=== PATIENT | male | born 1965 | race Caucasian/White ===

== ENCOUNTER 2016-09-08 15:15 | Outpatient (CLI) ==
[2015-11-05 17:10] VITALS: BMI 24.3
--- NOTE | 2016-09-08 15:37 | DI ---
EXAM: Chest two view, frontal and lateral views. HISTORY: Bronchitis. COMPARISON: None available. FINDINGS: The heart size is normal. There is no pulmonary vascular congestion. Small focal opacit y seen in the left lung base on the frontal view. Otherwise, the lungs are clear. No pleural effus ion or pneumothorax is seen. No acute osseous abnormality identified. IMPRESSION: Possible small focus of atelectasis or pneumonia at the left lung base. Follow-up in 4-6 weeks alysha mmended for reassessment.
== END 2016-09-08 15:16 | disposition home or self-care (01) ==
LOC: RAD 15:15
PROVIDERS: ATTEND Family Medicine
DX: J40 Bronchitis, not specified as acute or chronic (principal)

== ENCOUNTER 2017-10-31 14:38 | Outpatient (CLI) ==
[2015-11-05 17:10] VITALS: BMI 24.3
--- NOTE | 2017-10-31 15:38 | US ---
EXAM: Right lower extremity venous Doppler History: Right lower extremity pain and redness. Technique: Multiple sonographic images through the right lower extremity were obtained. Color duple x Doppler was used to interrogate vascular flow. Findings: The right common femoral, greater saphenous, superficial femoral, profunda, popliteal, per kang, posterior tibial, anterior tibial veins demonstrate spontaneous flow with normal compression a nd normal augmentation. Impression: No sonographic evidence for deep venous thrombosis
--- NOTE | 2017-10-31 15:51 | DI ---
EXAM: Three views of the right tibia and fibula. History: Right lower leg pain. Findings: No acute fracture or dislocation. No abnormal calcifications or radiopaque foreign bodies . Joint spaces are relatively preserved. Minimal calcaneal enthesiopathy. Impression: No acute osseous abnormality.
== END 2017-10-31 14:39 | disposition home or self-care (01) ==
LOC: RAD 14:38
PROVIDERS: ATTEND Family Medicine
DX: M79.604 Pain in right leg (principal)